=== PATIENT | male | born 1995 | race Caucasian/White ===

== ENCOUNTER 2019-09-05 00:44 | Emergency (ER) | payer OTHER ==
[~2019-09-05] VITALS: Ht 180.3 cm; Wt 127.0 kg
[2019-09-05 04:04] VITALS: BP 153/83
[2019-09-05] MEDS ORDERED: KETOROLAC TROMETH 60MG/2ML VIAL IM ONE (04:15)
[2019-09-05] MEDS ORDERED: cefTRIAXone SOD 1,000 MG VL IM ONE (04:15)
[2019-09-05] MEDS ORDERED: TETANUS-DIPTH-ACEL PERTUSSIS 0.5ML SYRG IM ONE (04:30)
== END 2019-09-05 05:02 | disposition home or self-care (01) ==
LOC: ER 00:44
DX: L03.012 Cellulitis of left finger (principal)
CPT/HCPCS: 73130; 90471; 90715; 96372; 99283; J0696; J1885